=== PATIENT | female | born 1965 | race Caucasian/White ===

== ENCOUNTER → 2017-07-04 | Outpatient (CLI) | payer OTHER ==
[~2017-07-04] MED LIST: ALUMAG30SU PO; CYCL10 PO; METH10 PO; ONDA4ODT MM; VITB100 PO; [UNRECOGNIZED DRUG - OTHER] PO
== END ==
LOC: LAB SHORT 12:53 → PLD 12:53
DX: N95.0 Postmenopausal bleeding (principal)
CPT/HCPCS: 88305

== ENCOUNTER 2017-10-14 06:06 | Day surgery (SDC) | payer OTHER, SELFPAY ==
[~2017-10-14] VITALS: Ht 170.2 cm; Wt 77.6 kg
[~2017-10-14 06:06] MED LIST changes: +ERGO400 PO; +ESTR2 PO; +Glucosamine-Ch1 EAC2 PO; +MEGA RED KRILL PO; +TUMS200 MG PO; +[UNRECOGNIZED DRUG - REMARK]
[2017-10-15 05:26] LABS: BASOPHILS ABSOLUTE AUTO 0.02 K/mm3 (0.00-0.23); BASOPHILS PERCENT AUTO 0 % (0-2); EOSINOPHILS ABSOLUTE AUTO 0.06 K/mm3 (0.00-0.68); EOSINOPHILS PERCENT AUTO 1 % (0-6); Hematocrit 38.2 % (33.0-51.0); Hemoglobin 12.7 g/dL (11.5-16.0); IMMATURE GRAN ABSOLUTE AUTO 0.04 K/mm3 (0.00-0.10); IMMATURE GRAN PERCENT AUTO 0 % (0-1); LYMPHOCYTES ABSOLUTE AUTO 1.96 K/mm3 (0.84-5.20); LYMPHOCYTES PERCENT AUTO 16 % (21-46); MONOCYTES ABSOLUTE AUTO 0.76 K/mm3 (0.16-1.47); MONOCYTES PERCENT AUTO 6 % (4-13); Mean Corpuscular HGB 28.9 pg (26.0-34.0); Mean Corpuscular HGB Conc 33.2 g/dL (31.5-36.5); Mean Corpuscular Volume 87 fL (80-100); Mean Platelet Volume 11.4 fL (9.1-12.4); NEUTROPHILS ABSOLUTE AUTO 9.19 K/mm3 (1.96-9.15); NEUTROPHILS PERCENT AUTO 76 % (41-73); Platelet Count 211 K/mm3 (150-400); RDW Coefficient Variation 13.2 % (11.7-14.2); RDW Standard Deviation 41.5 fL (35.1-46.3); White Blood Cell Count 12.03 K/mm3 (4.00-11.30)
[2017-10-15 05:46] LABS: Anion Gap 9 mmol/L (6-16); Blood Urea Nitrogen 10 mg/dL (8-24); Bun/Creatinine Ratio 16.6 (12.0-20.0); CO2, Blood 26 mmol/L (21-32); Calcium, Blood 8.7 mg/dL (8.5-10.1); Chloride, Blood 107 mmol/L (98-108); Glomerular Filtration Rate >60 (60-); Glucose, Blood 105 mg/dL (70-99); Potassium, Blood 3.7 mmol/L (3.5-5.5); Sodium, Blood 142 mmol/L (136-145)
[2017-10-15] MEDS ORDERED: IBUP800 PO (08:46)
[2017-10-15] MEDS ORDERED: ROXICODONE5 MG PO (08:47)
== END 2017-10-15 15:06 | disposition home or self-care (01) ==
LOC: ORSCMMR 06:06 → SURS 06:06 → ORSCMMR 06:07 → ORD 07:30 → ORSCMMR 10:40 → SURS 10:40 → ORSCMMR 10-15 15:06
PROVIDERS: Obstetrics & Gynecology
PROC: 0UT7FZZ Resection of Bilateral Fallopian Tubes, Via Natural or Artificial Opening With Percutaneous Endoscopic Assistance (ICD-10-PCS; principal; 2017-10-14 07:30)
PROC: 0UT9FZZ Resection of Uterus, Via Natural or Artificial Opening With Percutaneous Endoscopic Assistance (ICD-10-PCS; principal; 2017-10-14 07:30)
PROC: 0UT1FZZ Resection of Left Ovary, Via Natural or Artificial Opening With Percutaneous Endoscopic Assistance (ICD-10-PCS; principal; 2017-10-14 07:30)
DX: N95.0 Postmenopausal bleeding (principal); N81.6 Rectocele; N80.0 Endometriosis of uterus; D25.9 Leiomyoma of uterus, unspecified; Z87.891 Personal history of nicotine dependence; B19.20 Unspecified viral hepatitis C without hepatic coma
CPT/HCPCS: 36415; 80048; 85025; 88307; J0171; J0690; J1100; J1885; J2250; J2405; J2765; J3010; J7120

== ENCOUNTER 2018-04-08 08:22 | Day surgery (SDC) | payer OTHER, SELFPAY ==
[~2018-04-08 08:22] MED LIST changes: +IBUP800 PO; +ROXICODONE5 MG PO
--- NOTE | 2018-04-08 10:19 | NUR ---
PT DENIES C/O OF PAIN AT INCISION SITE. NO BLEEDING OR SWELLING AT SITE. PT PLACED ON R SIDE WITH A ROLLED TOWEL FOR PRESSURE.
--- NOTE | 2018-04-08 11:39 | NUR ---
PT CONTINUES TO BE STABLE THROUGHOUT RECOVERY FROM LIVER US. US IS COMING BY TO DO US AT BEDSIDE.
--- NOTE | 2018-04-08 11:42 | NUR ---
PT TOLERATING PO FLUIDS WITHOUT DIFFICULTY.
--- NOTE | 2018-04-08 12:06 | NUR ---
Discharge instructions reviewed with patient. Patient verbalizes understanding. Copy given to patient to take home. Patient States Post-Procedure ride home has been arranged. Discharged via wheelchair to private car for ride home. PT US CLEARED FOR DISCHARGE HOME. ALL BELONGIGNS RETURNED TO PATIENT. PT NEEDED W/C RIDE OUT TO CAR DUE TO PAST BACK SURGERIES.
[2018-04-15] MEDS ORDERED: ESTR2 PO (11:12)
[2018-04-15] MEDS ORDERED: LORA1 PO (11:13)
== END 2018-04-08 22:35 | disposition home or self-care (01) ==
LOC: US 08:22
PROVIDERS: Radiology Diagnostic Radiology
PROC: 0FB03ZX Excision of Liver, Percutaneous Approach, Diagnostic (ICD-10-PCS; principal; 2018-04-08 10:00)
DX: C78.7 Secondary malignant neoplasm of liver and intrahepatic bile duct (principal); R63.4 Abnormal weight loss; R19.4 Change in bowel habit
CPT/HCPCS: 47000; 76942; 88305; 88341; 88342

== ENCOUNTER 2018-04-16 09:33 | Day surgery (SDC) | payer OTHER ==
[~2018-04-16] VITALS: Ht 170.2 cm; Wt 63.5 kg
[~2018-04-16 09:33] MED LIST changes: +LORA1 PO
--- NOTE | 2018-04-16 10:13 | NUR ---
PT ADMITTED TO [facility]. AGREES WITH PLANNED SURGERY. MEDS, ALLERGIES AND HX REVIEWED. LUNG SOUNDS DECREASED TO BASES.
--- NOTE | 2018-04-16 11:04 | NUR ---
REPORT TO DAVID HICKS RN.
--- NOTE | 2018-04-16 15:25 | NUR ---
50CC CLEAR EMESIS NOTED. MEDICATED WITH 4MG IV ZOFRAN. PT REPORTS IMPROVEMENT IN NAUSEA. MEDICATED WITH 1 TAB PO NORCO ORDERED. REPORTS 3/10 PAIN. VERBALIZED UNDERSTANDING OF DC INSTRUCTIONS/FOLLOW UP/WOUND CARE. DC'D IV INTACT. DISCHARGED VIA WC TO PRIVATE CAR.
== END 2018-04-16 22:36 | disposition home or self-care (01) ==
LOC: ORSCMMR 09:33 → ORD 11:45 → ORSCMMR 22:36
PROVIDERS: Surgery
PROC: 0JH60WZ Insertion of Totally Implantable Vascular Access Device into Chest Subcutaneous Tissue and Fascia, Open Approach (ICD-10-PCS; principal; 2018-04-16 11:45)
DX: C18.7 Malignant neoplasm of sigmoid colon (principal); C78.7 Secondary malignant neoplasm of liver and intrahepatic bile duct; F41.9 Anxiety disorder, unspecified; B19.20 Unspecified viral hepatitis C without hepatic coma; Z87.891 Personal history of nicotine dependence; Z79.899 Other long term (current) drug therapy
CPT/HCPCS: 77001; 93005; 93010; C1788; J0690; J0744; J1642; J2250; J2405; J3010; J7120

== ENCOUNTER 2018-06-02 16:38 | Emergency (ER) | payer OTHER ==
[~2018-06-02] VITALS: Ht 165.1 cm; Wt 59.0 kg
[2018-06-02 17:11] LABS: BASOPHILS ABSOLUTE AUTO 0.02 K/mm3 (0.00-0.23); BASOPHILS PERCENT AUTO 0 % (0-2); EOSINOPHILS ABSOLUTE AUTO 0.03 K/mm3 (0.00-0.68); EOSINOPHILS PERCENT AUTO 0 % (0-6); Hematocrit 39.6 % (33.0-51.0); Hemoglobin 12.7 g/dL (11.5-16.0); IMMATURE GRAN ABSOLUTE AUTO 0.02 K/mm3 (0.00-0.10); IMMATURE GRAN PERCENT AUTO 0 % (0-1); LYMPHOCYTES ABSOLUTE AUTO 0.77 K/mm3 (0.84-5.20); LYMPHOCYTES PERCENT AUTO 10 % (21-46); MONOCYTES ABSOLUTE AUTO 0.12 K/mm3 (0.16-1.47); MONOCYTES PERCENT AUTO 2 % (4-13); Mean Corpuscular HGB Conc 32.1 g/dL (31.5-36.5); Mean Corpuscular Volume 87 fL (80-100); Mean Platelet Volume 11.5 fL (9.1-12.4); NEUTROPHILS ABSOLUTE AUTO 6.55 K/mm3 (1.96-9.15); NEUTROPHILS PERCENT AUTO 87 % (41-73); Platelet Count 167 K/mm3 (150-400); RDW Coefficient Variation 16.8 % (11.7-14.2); RDW Standard Deviation 52.5 fL (35.1-46.3); Red Blood Cell Count 4.53 M/mm3 (3.80-5.20); White Blood Cell Count 7.51 K/mm3 (4.00-11.30)
[2018-06-02 17:38] LABS: Alanine Aminotransfer (ALT/SGP 33 U/L (12-78); Albumin, Blood 3.5 g/dL (3.4-5.0); Albumin/Globulin Ratio 0.8 (0.8-1.8); Alk Phos 175 U/L (50-136); Anion Gap 7 mmol/L (6-16); Aspartate Aminotrans (AST/SGOT 29 U/L (12-37); Bilirubin, Total 0.3 mg/dL (0.1-1.0); Blood Urea Nitrogen 5 mg/dL (8-24); Bun/Creatinine Ratio 15.5 (12.0-20.0); CO2, Blood 28 mmol/L (21-32); Chloride, Blood 105 mmol/L (98-108); Creatinine, Blood 0.32 mg/dL (0.40-1.00); Globulin, Blood 4.2 g/dL (2.2-4.0); Glomerular Filtration Rate >60 (60-); Glucose, Blood 129 mg/dL (70-99); Potassium, Blood 3.7 mmol/L (3.5-5.5); Sodium, Blood 140 mmol/L (136-145); Total Protein, Blood 7.7 g/dL (6.4-8.2); Troponin I <0.015 ng/mL (0.000-0.040)
== END 2018-06-02 18:20 | disposition home or self-care (01) ==
LOC: ER 16:38
PROVIDERS: Emergency Medicine
DX: R42 Dizziness and giddiness (principal); J44.9 Chronic obstructive pulmonary disease, unspecified; Z87.891 Personal history of nicotine dependence
CPT/HCPCS: 71046; 80053; 84484; 85025; 93005; 93010; 96374; 96375; 99284-25; J1200; J1642; J2405; J7030

== ENCOUNTER → 2018-10-27 | Outpatient (CLI) | payer OTHER | END | disposition home or self-care (01) | LOC: LAB 17:15 → LAB SHORT 17:15 | DX: J02.9 Acute pharyngitis, unspecified (principal) | CPT/HCPCS: 87081 ==

== ENCOUNTER 2019-04-10 09:08 | Emergency (ER) | payer MEDICARE, OTHER ==
[~2019-04-10] VITALS: Ht 170.2 cm; Wt 67.1 kg
[2019-04-10] MEDS ORDERED: Methadone10 MG/5 ML (09:31)
[2019-04-10] MEDS ORDERED: Ondansetron Odt8 MG MM (09:31)
[2019-04-10 10:57] LABS: BASOPHILS ABSOLUTE AUTO 0.02 K/mm3 (0.00-0.23); BASOPHILS PERCENT AUTO 0 % (0-2); EOSINOPHILS ABSOLUTE AUTO 0.08 K/mm3 (0.00-0.68); EOSINOPHILS PERCENT AUTO 1 % (0-6); Hematocrit 34.6 % (33.0-51.0); Hemoglobin 10.8 g/dL (11.5-16.0); IMMATURE GRAN ABSOLUTE AUTO 0.04 K/mm3 (0.00-0.10); IMMATURE GRAN PERCENT AUTO 1 % (0-1); LYMPHOCYTES ABSOLUTE AUTO 1.03 K/mm3 (0.84-5.20); LYMPHOCYTES PERCENT AUTO 13 % (21-46); MONOCYTES PERCENT AUTO 7 % (4-13); Mean Corpuscular HGB 27.3 pg (26.0-34.0); Mean Corpuscular HGB Conc 31.2 g/dL (31.5-36.5); Mean Corpuscular Volume 87 fL (80-100); NEUTROPHILS ABSOLUTE AUTO 6.36 K/mm3 (1.96-9.15); NEUTROPHILS PERCENT AUTO 78 % (41-73); Platelet Count 222 K/mm3 (150-400); RDW Coefficient Variation 15.1 % (11.7-14.2); RDW Standard Deviation 48.7 fL (35.1-46.3); Red Blood Cell Count 3.96 M/mm3 (3.80-5.20); White Blood Cell Count 8.13 K/mm3 (4.00-11.30)
[2019-04-10 11:09] LABS: Alanine Aminotransfer (ALT/SGP 35 U/L (12-78); Albumin, Blood 2.8 g/dL (3.4-5.0); Albumin/Globulin Ratio 0.7 (0.8-1.8); Alk Phos 260 U/L (50-136); Anion Gap 5 mmol/L (6-16); Aspartate Aminotrans (AST/SGOT 68 U/L (12-37); Bilirubin, Total 0.4 mg/dL (0.1-1.0); Blood Urea Nitrogen 13 mg/dL (8-24); Bun/Creatinine Ratio 21.1 (12.0-20.0); CO2, Blood 30 mmol/L (21-32); Chloride, Blood 103 mmol/L (98-108); Creatinine, Blood 0.62 mg/dL (0.40-1.00); Globulin, Blood 3.9 g/dL (2.2-4.0); Glomerular Filtration Rate >60 (60-); Glucose, Blood 91 mg/dL (70-99); Potassium, Blood 3.9 mmol/L (3.5-5.5); Sodium, Blood 138 mmol/L (136-145); Total Protein, Blood 6.7 g/dL (6.4-8.2)
== END 2019-04-10 13:15 | disposition home or self-care (01) ==
LOC: ER 09:08
PROVIDERS: Emergency Medicine
DX: C18.9 Malignant neoplasm of colon, unspecified (principal); C78.7 Secondary malignant neoplasm of liver and intrahepatic bile duct; Z88.0 Allergy status to penicillin; Z88.1 Allergy status to other antibiotic agents; Z88.5 Allergy status to narcotic agent; Z91.048 Other nonmedicinal substance allergy status; Z79.899 Other long term (current) drug therapy; F41.9 Anxiety disorder, unspecified; Z87.891 Personal history of nicotine dependence
CPT/HCPCS: 71046; 74177; 80053; 83690; 85025; 86850; 86900; 86901; 93005; 93010; 96361; 96374-59; 96375; 96376; 99284-25; J1170; J1642; J2405; J7030; Q9967

== ENCOUNTER 2019-05-25 06:19 | Inpatient (IN) | payer MEDICARE, OTHER ==
[~2019-05-25] VITALS: Ht 170.2 cm; Wt 65.5 kg
[~2019-05-25 06:19] MED LIST changes: +Methadone10 MG/5 ML PO; +Ondansetron Odt8 MG MM
[2019-05-25 07:04] LABS: Source, Urine Clean Catch
[2019-05-25 07:12] LABS: Blood, Urine 1+ (Neg); Glucose Qualitative, Urine Neg (Neg); Ketones, Urine 1+ (Neg); Leukocyte Esterase, Urine 2+ (Neg); Nitrite, Urine Neg (Neg); Protein, Urine 2+ (Neg); Urobilinogen, Urine 1+ (Normal)
[2019-05-25 07:18] LABS: Appearance, Urine Cloudy (Clear); Bilirubin, Urine 1+ (Neg); Color, Urine Amber (P-Yellow)
[2019-05-25 07:21] LABS: Red Blood Cells, Urine 0-2 /hpf (0-2)
[2019-05-25 07:22] LABS: Bacteria Many /hpf
[2019-05-25 07:23] LABS: Squamous Epithelial Cells Few /hpf (Few)
[2019-05-25 07:29] LABS: Calcium Oxalate Crystals Mod /hpf
[2019-05-25 07:31] LABS: Mucus Mod (0-Heavy)
[2019-05-25 07:50] LABS: BASOPHILS ABSOLUTE AUTO 0.05 K/mm3 (0.00-0.23); BASOPHILS PERCENT AUTO 0 % (0-2); EOSINOPHILS ABSOLUTE AUTO 0.07 K/mm3 (0.00-0.68); EOSINOPHILS PERCENT AUTO 1 % (0-6); Hematocrit 45.5 % (33.0-51.0); IMMATURE GRAN ABSOLUTE AUTO 0.06 K/mm3 (0.00-0.10); IMMATURE GRAN PERCENT AUTO 0 % (0-1); LYMPHOCYTES ABSOLUTE AUTO 0.94 K/mm3 (0.84-5.20); LYMPHOCYTES PERCENT AUTO 7 % (21-46); MONOCYTES ABSOLUTE AUTO 0.81 K/mm3 (0.16-1.47); MONOCYTES PERCENT AUTO 6 % (4-13); Mean Corpuscular HGB Conc 30.8 g/dL (31.5-36.5); Mean Corpuscular Volume 88 fL (80-100); Mean Platelet Volume 10.1 fL (9.1-12.4); NEUTROPHILS ABSOLUTE AUTO 12.14 K/mm3 (1.96-9.15); NEUTROPHILS PERCENT AUTO 86 % (41-73); Platelet Count 156 K/mm3 (150-400); RDW Coefficient Variation 20.6 % (11.7-14.2); RDW Standard Deviation 63.1 fL (35.1-46.3); Red Blood Cell Count 5.19 M/mm3 (3.80-5.20); White Blood Cell Count 14.07 K/mm3 (4.00-11.30)
[2019-05-25 08:10] LABS: Alanine Aminotransfer (ALT/SGP 38 U/L (12-78); Albumin, Blood 3.4 g/dL (3.4-5.0); Albumin/Globulin Ratio 0.8 (0.8-1.8); Alk Phos 222 U/L (50-136); Anion Gap 9 mmol/L (6-16); Aspartate Aminotrans (AST/SGOT 43 U/L (12-37); Bilirubin, Total 0.3 mg/dL (0.1-1.0); Blood Urea Nitrogen 16 mg/dL (8-24); Bun/Creatinine Ratio 33.7 (12.0-20.0); CO2, Blood 27 mmol/L (21-32); Calcium, Blood 9.4 mg/dL (8.5-10.1); Chloride, Blood 105 mmol/L (98-108); Creatinine, Blood 0.48 mg/dL (0.40-1.00); Globulin, Blood 4.5 g/dL (2.2-4.0); Glomerular Filtration Rate >60 (60-); Glucose, Blood 112 mg/dL (70-99); Potassium, Blood 4.1 mmol/L (3.5-5.5); Sodium, Blood 141 mmol/L (136-145); Total Protein, Blood 7.9 g/dL (6.4-8.2)
[2019-05-25] MEDS ORDERED: Flagyl500 MG PO (08:25)
[2019-05-25] MEDS ORDERED: Cipro500 MG PO (08:25)
[2019-05-25] MEDS ORDERED: PRED5 PO (12:38)
[2019-05-25] MEDS ORDERED: CYCL10 PO (12:38)
--- NOTE | 2019-05-25 15:43 | NUR ---
PT ADMITTED PT ADMITTED TO 356. PT IN STABLE CONDTION WITH VSS. PT ORIENTED TO ROOM. CALL LIGHT IN REACH. FAMILY AT BEDSIDE. PT MEDICATED WITH METHDONE ORDERED. REFUSED HEPARIN INJECTION. PT BECAME NAUSEATED FROM METHADONE TAB. DR. IBARRA NOTIFIED. ORDER CHANGED TO LIQUID. PT HOME DOSE USED. THIS RN WALKED PT METHADONE TO PHARMACY. RECIEPT RECIEVED AND TAPED TO FRONT OF CHART. WILL CONTINUE TO MONITOR.
--- NOTE | 2019-05-25 16:19 | NUR ---
PT METHADONE RETURNED TO PT. PHARMACY UNABLE TO ADMINISTER HOME METHADONE. MEDADONE RETURNED TO PT. TO TAKE HOME.
--- NOTE | 2019-05-25 17:14 | NUR ---
SHIFT SUMMARY PT MEDICATED WITH DILADID ONCE THIS SHIFT. NS RUNNING 100ML/HR. IF PO MEDS ARE GIVEN, NAUSEA MEDS ARE NEEDED WITH ADMINISTRATION. NO OTHER CHANGES IN ASSESSMENT AT THIS TIME. VSS. WILL CONTINUE TO MONITOR UNTIL TURNOVER IS COMPLETE.
--- NOTE | 2019-05-25 19:38 | NUR ---
[facility]
--- NOTE | 2019-05-25 22:50 | NUR ---
53 year old Female with stage 4 liver and colon cancer has hx of multiple spine surgeries and on liquid oral methadone 10 mg QID who was willing to supply own liqiud methadone but we are unable to administer PT's own liquid methadone per controlled rx policy. She has chronic nausea and continues unable to tolerate much oral intake clear liquids. She has been medicated with IV zofran Q 6 hrs with narcotic administration with poor control. ARCHITECTURAL INTERN Latonia Castillo called and discussed chronic narcotic use last yesterday who says she needs zofran or other antiemetic avaiable more frequently. She has reported 5 stools today and refused colace and sennakot and takes miralax daily baseline. Miralax rx oral phenergan rx and zofran IV available q 4 hrs now. PT has option for oral methadone 10 mg for pain and IV dilaudid 1 mg available q 4 hrs. She has taken 1 mg IV dilaudid with helpful effect and has declined oral methadone due to reported N & V baseline unless liquid. Continues on IV fluids for dehydration poor oral intake. PT has mediport not accessed due to active chemo due tomorrow outpt. Benzo ativan 0.5 available q 4 hrs prn took at HS with helpful effect. Pleasant and talkative up indep in room. Support offered for terminal disease. Has supportive Spouse 2 Adult Children and 2 Grandchildren.
[2019-05-26 04:45] LABS: BASOPHILS ABSOLUTE AUTO 0.01 K/mm3 (0.00-0.23); BASOPHILS PERCENT AUTO 0 % (0-2); EOSINOPHILS ABSOLUTE AUTO 0.15 K/mm3 (0.00-0.68); EOSINOPHILS PERCENT AUTO 3 % (0-6); Hematocrit 36.4 % (33.0-51.0); Hemoglobin 11.1 g/dL (11.5-16.0); IMMATURE GRAN ABSOLUTE AUTO 0.01 K/mm3 (0.00-0.10); IMMATURE GRAN PERCENT AUTO 0 % (0-1); LYMPHOCYTES ABSOLUTE AUTO 1.35 K/mm3 (0.84-5.20); LYMPHOCYTES PERCENT AUTO 23 % (21-46); MONOCYTES ABSOLUTE AUTO 0.35 K/mm3 (0.16-1.47); MONOCYTES PERCENT AUTO 6 % (4-13); Mean Corpuscular HGB Conc 30.5 g/dL (31.5-36.5); Mean Corpuscular Volume 89 fL (80-100); Mean Platelet Volume 10.4 fL (9.1-12.4); NEUTROPHILS ABSOLUTE AUTO 4.13 K/mm3 (1.96-9.15); NEUTROPHILS PERCENT AUTO 69 % (41-73); Platelet Count 121 K/mm3 (150-400); RDW Coefficient Variation 20.8 % (11.7-14.2); RDW Standard Deviation 65.3 fL (35.1-46.3); Red Blood Cell Count 4.11 M/mm3 (3.80-5.20)
[2019-05-26 05:08] LABS: Alanine Aminotransfer (ALT/SGP 27 U/L (12-78); Albumin, Blood 2.8 g/dL (3.4-5.0); Albumin/Globulin Ratio 0.8 (0.8-1.8); Alk Phos 167 U/L (50-136); Anion Gap 3 mmol/L (6-16); Aspartate Aminotrans (AST/SGOT 28 U/L (12-37); Bilirubin, Total 0.3 mg/dL (0.1-1.0); Blood Urea Nitrogen 8 mg/dL (8-24); Bun/Creatinine Ratio 12.9 (12.0-20.0); CO2, Blood 29 mmol/L (21-32); Calcium, Blood 8.5 mg/dL (8.5-10.1); Chloride, Blood 110 mmol/L (98-108); Creatinine, Blood 0.62 mg/dL (0.40-1.00); Globulin, Blood 3.6 g/dL (2.2-4.0); Glomerular Filtration Rate >60 (60-); Glucose, Blood 87 mg/dL (70-99); Potassium, Blood 3.9 mmol/L (3.5-5.5); Sodium, Blood 142 mmol/L (136-145); Total Protein, Blood 6.4 g/dL (6.4-8.2)
--- NOTE | 2019-05-26 07:39 | NUR ---
PT with methadone dependancy also has abd pain stage 4 colon cvancer with mets to liver, stage 2 lung CA. Exsmoker, etoh cessation 20 years ago. On pallative chemo to tx mets, due for Q 2 week interval tx. Implanted mediport not accessed. Continues unable to tolerate clear liquid diet. medicated x 2 with zofran phenergan 12.5 mg with helpful effect. Methadone 10 mg x 1 dilaudid 1 mg iv q 4 hrs x 2 prn with good pain control. PT states 5 formed bm yesterday 3 x my shift declined bowel care. Miralax order obtained. Summer, connie in room. hx of 18 surgeries to neck and spine.
--- NOTE | 2019-05-26 18:31 | NUR ---
SHIFT SUMMARY PATIENT MEDICATED SEVERAL TIMES FOR PAIN AND NAUSEA THIS SHIFT. PATIENT DENIES SHORTNESS OF BREATH. PATIENT UP SBA TO BATHROOM. PATIENT HAD EPISODE OF HEART RATE ELEVATED INTO THE 160'S. PATIENT WAS DIZZY AND SYMPTOMATIC REPORTING SHE FELT "TERRIBLE" AND LIKE HER HEART WAS POUNDING OUT OF HER CHEST. CALL TO DR. BARKER, ORDERS FOR TELEMETRY AND EKG GIVEN. EKG SHOWED NSR. CALL LIGHT IN REACH.
--- NOTE | 2019-05-27 08:39 | NUR ---
PATIENT DID NOT EAT BREAKFAST THIS SHIFT DUE TO NOT FEELING WELL. RN NOTIFIED.
--- NOTE | 2019-05-27 13:32 | NUR ---
Initial PAL CARE visit: Palliative care referral received for symptom management and advanced care planning. Review of EMR and case conference with pt's bedside RN and admission discharge rn prior to my visit. Pt has metastatic colon cancer and reports "stage IV colon, liver and lung cancer" upon meeting. She states she has done palliative chemo tx since dx approx 13 months ago. She reports sobriety of 20 years after many years of heavy drinking and smoking. 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 Pt was admitted with n/v, abd and chronic back pain from prev back injury/surgery and reported hardware in low back. Medications for s/s reviewed with RN and both RN and pt report pt's s/s are well managed with current regime as long as it is followed without gaps in administration. Pt sitting by window, up in chair upon arrival. Introduced myself. Pt slightly guarded initially but warmed quickly to conversation and supportive listening. Discussed her s/s and measures for relief of nausea, pain and anxiety. Time spent listening and allowing pt to express her feelings, grief, worries about and son and what her future holds. She expressed that she is tired of frequent medical care and complications from cancer and her treatment but also describes an enjoyed quality of life when she is not undergoing treatment or medical intervention. She spoke of two grandchildren, son and especially her and concern for him. We talked about nonpharmacological measures for relief of nausea, pain, anxiety. Pt talked about wishing she could see her dog, and that being able to see her yorkie & relieve the dog's stress would aleviate her own anxiety more than anything. Arrangements made and pt told to have her bring her yorkie for visits. Pt very pleased about this. Therapeutic visit continued. Report to RN and car rental clerk on my visit. Requested International Project Engineer visit during pt's stay. She has strong real in GOD and feels he has more for her to do yet. She feels God saved her from both her alcohol addiction and smoking addiction. Plan to follow for s/s management and therapeutic visits.
--- NOTE | 2019-05-27 18:32 | NUR ---
SHIFT SUMMARY PATIENT MEDICATED X2 FOR PAIN AND X2 FOR NAUSEA. PATIENT REPORTS FEELING BETTER TODAY. TOLERATING FULL LIQUID DIET WELL. UP SBA IN ROOM. CALL LIGHT IN REACH.
--- NOTE | 2019-05-27 19:24 | NUR ---
Initial spiritual care note: Arleen was welcoming of companionship and prayer. She reports a strong real that sustains and guides her. She beleives that God has spared her numerous times from , and feels she has a purpose she has yet to fulfill. She is well-loved and supported by her spouse. She admits to feeling fearful at times, but she quickly dismisses this. She will benefit from continued spiritual support and disability counselor to explore purpose/fear. Visit interrupted when I was urgently called to another pt's room. I will continue to see Arleen as schedule permits.
--- NOTE | 2019-05-28 00:58 | NUR ---
PHYSICIAN COMMUNICATION CONTACTED THE IT ENGINEER PHYSICIAN, DR SCHAEFFER, AT 0013 TO INFORM HER THAT THE PATIENT HAD TWO EPISODES WHERE SHE TURNED FLUSHED AT SWEATY WITH HER HEART RATE TEMPORARILLY SUSTAINING BETWEEN 115-120 BPM FOR ABOUT 30 SECOND TO A MINUTE. I ASLO INFORMED HER THAT THE PATIENT WAS RECEIVING CIPRO AND FLAGYL. DR SCHAEFFER SAID TO TAKE THE PATIENT'S BLOOD PRESSURE AND TEMPERATURE AND MONITOR THE PATIENT FOR ANY SIGNS OF A RASH.
[2019-05-28 05:06] LABS: BASOPHILS ABSOLUTE AUTO 0.02 K/mm3 (0.00-0.23); BASOPHILS PERCENT AUTO 0 % (0-2); EOSINOPHILS ABSOLUTE AUTO 0.08 K/mm3 (0.00-0.68); EOSINOPHILS PERCENT AUTO 2 % (0-6); Hematocrit 37.4 % (33.0-51.0); Hemoglobin 11.5 g/dL (11.5-16.0); IMMATURE GRAN ABSOLUTE AUTO 0.03 K/mm3 (0.00-0.10); IMMATURE GRAN PERCENT AUTO 1 % (0-1); LYMPHOCYTES ABSOLUTE AUTO 1.08 K/mm3 (0.84-5.20); LYMPHOCYTES PERCENT AUTO 21 % (21-46); MONOCYTES ABSOLUTE AUTO 0.45 K/mm3 (0.16-1.47); MONOCYTES PERCENT AUTO 9 % (4-13); Mean Corpuscular HGB Conc 30.7 g/dL (31.5-36.5); Mean Corpuscular Volume 88 fL (80-100); Mean Platelet Volume 10.2 fL (9.1-12.4); NEUTROPHILS ABSOLUTE AUTO 3.41 K/mm3 (1.96-9.15); NEUTROPHILS PERCENT AUTO 67 % (41-73); Platelet Count 123 K/mm3 (150-400); RDW Coefficient Variation 20.5 % (11.7-14.2); Red Blood Cell Count 4.26 M/mm3 (3.80-5.20); White Blood Cell Count 5.07 K/mm3 (4.00-11.30)
[2019-05-28 05:48] LABS: Anion Gap 4 mmol/L (6-16); Blood Urea Nitrogen 6 mg/dL (8-24); Bun/Creatinine Ratio 9.6 (12.0-20.0); CO2, Blood 31 mmol/L (21-32); Calcium, Blood 9.1 mg/dL (8.5-10.1); Chloride, Blood 106 mmol/L (98-108); Creatinine, Blood 0.63 mg/dL (0.40-1.00); Glomerular Filtration Rate >60 (60-); Glucose, Blood 87 mg/dL (70-99); Potassium, Blood 3.4 mmol/L (3.5-5.5); Sodium, Blood 141 mmol/L (136-145)
--- NOTE | 2019-05-28 07:28 | NUR ---
SHIFT SUMMARY PATIENT ALERT AND ORIENTED. HAD TWO EPISODES OVERNIGHT WHERE HER HEART WAS TACHYCARDIC FOR ABOUT 30 SECOND AND SHE FELT HOT, TURNED RED, WAS SWEATY, AND DIZZY. PHYSICIAN NOTIFIED. PATIENT MEDICATED PER EMAR FOR PAIN AND NAUSEA. IV PATENT AND INFUSING WITH NORMAL SALINE AT 100 ML/HR. BED IN LOWEST POSITION WITH WHEELS LOCKED. CALL LIGHT AND BELONGINGS WITHIN REACH. REPORT GIVEN TO ONCOMING RN.
[2019-05-28] MEDS ORDERED: ACET325 PO (09:59)
[2019-05-28] MEDS ORDERED: ESTRADIOL0.5 MG PO (10:01)
[2019-05-28] MEDS ORDERED: DOCU100 PO (10:01)
[2019-05-28] MEDS ORDERED: LORA.5 PO (10:02)
[2019-05-28] MEDS ORDERED: CIPR500 PO (10:03)
[2019-05-28] MEDS ORDERED: ONDA4ODT MM (10:03)
[2019-05-28] MEDS ORDERED: PANT40 PO (10:04)
[2019-05-28] MEDS ORDERED: METR500 PO (10:04)
--- NOTE | 2019-05-28 15:54 | NUR ---
PT DISCHARGED AT 1500 [facility] WHEELED OUT PT VIA WHEEL CHAIR. PT HAD ALL PAPERS REVIEWED AND EDCATIONAL MATERIAL SENT WITH PT. NO DISTRESS NOTED TO TRANSPORT.
== END 2019-05-28 15:00 | disposition home or self-care (01) | DRG 392 ==
LOC: ER 06:19 → MEDS 13:20 → ENPENDDIS 05-28 08:30 → MEDS 05-28 15:00
PROVIDERS: Emergency Medicine; Internal Medicine; ADMIT Internal Medicine
DX: A09 Infectious gastroenteritis and colitis, unspecified (principal); C19 Malignant neoplasm of rectosigmoid junction; C78.7 Secondary malignant neoplasm of liver and intrahepatic bile duct; E44.0 Moderate protein-calorie malnutrition; M54.9 Dorsalgia, unspecified; G89.29 Other chronic pain; J44.9 Chronic obstructive pulmonary disease, unspecified; Z79.891 Long term (current) use of opiate analgesic; Z92.21 Personal history of antineoplastic chemotherapy; Z66 Do not resuscitate; K59.00 Constipation, unspecified; Z87.891 Personal history of nicotine dependence; R00.0 Tachycardia, unspecified; Z68.22 Body mass index [BMI] 22.0-22.9, adult
CPT/HCPCS: 36415; 74177; 80048; 80053; 81001; 83690; 85025; 87086; 93005; 93010; 96361; 96365; 96367; 96375; 96376; 99285-25; C9113; J0744; J1170; J2405; J7030; J7512; Q9967

== ENCOUNTER 2019-08-06 06:01 | Inpatient (IN) | payer MEDICARE, OTHER ==
[~2019-08-06] VITALS: Ht 170.2 cm; Wt 58.1 kg
[~2019-08-06 06:01] MED LIST changes: +ACET325 PO; +CIPR500 PO; +Cipro500 MG PO; +DOCU100 PO; +ESTRADIOL0.5 MG PO; +Flagyl500 MG PO; +LORA.5 PO; +METR500 PO; +PANT40 PO; +PRED5 PO
--- NOTE | 2019-08-06 08:20 | NUR ---
PATIENT ADMITTED BY [facility] STAFF Ambulatory in SURGICAL FLOOR.
--- NOTE | 2019-08-06 12:19 | NUR ---
PT ARRIVED TO THE ROOM AT APPROXIMATELY 1155. SHE IS ALERT AND ORIENTED. PT RATES HER PAIN AT 5/10 BUT REPORTS 3/10 WOULD BE TOLERABLE. PT WAS GIVEN PAIN MEDICATION. PT IS SOMEWHAT DROWSY, CONTINUOUS OX WAS ORDERED FOR HIGH RISK PAIN MANAGEMENT. PT'S BP IS ELEVATED AT THIS TIME, WILL CONTINUE TO MONITOR, OTHER VS STABLE. ABD DRESSING C/D/I. CALL LIGHT WITHIN REACH.
[2019-08-06] MEDS ORDERED: Prednisone10 MG PO (12:44)
[2019-08-06] MEDS ORDERED: PANT40 PO (12:46)
[2019-08-06] MEDS ORDERED: Norco 5-325 Ta1 EACH PO (12:48)
[2019-08-06] MEDS ORDERED: ONDA4ODT PO (12:50)
--- NOTE | 2019-08-06 12:51 | NUR ---
MEDICATION LIST VERIFIED WITH PT'S PHARMACY. SOME INSTRUCTIONS ON THE LIST WERE DIFFICULT TO READ, THOSE INSTRUCTIONS WERE CLARIFIED WITH [facility] OVER THE PHONE.
--- NOTE | 2019-08-07 05:01 | NUR ---
POD 1 S/P LAP COLECTOMY+COLOSTOMY. PT VSS T/O NIGHT. DRESSINGS CDI. OSTOMY PUTTING OUT SS DRNG. PAIN MGD ALT IV AND PO PAIN MEDS. PT ABHI CLEAR LIQ PO, DID HAVE 1 EPISODE OF NAUSEA, NO EMESIS, REP RELIEF AFTER ZOFRAN. PT UP OOB W/SBA, ABHI WELL. MCCOY PATANT DRNG LIGHT YELLOW URINE. IVF CONT PER ORDERS. PT USING CALL LIGHT FOR ASSISTANCE, WILL CONT TO MONITOR UNTIL REP GIVEN TO ONCOMING RN.
--- NOTE | 2019-08-07 07:28 | NUR ---
sitting up in chair reports severe pain ruq abd pt has bt's upper abd only denies nausea at this time no flatus in ostomy pt stated she is belching occ po lortab given with popsirenard and aj
--- NOTE | 2019-08-07 08:10 | NUR ---
amb in hallway with fww pt still having pain ruq abd pt stated she uses kpad off and on
--- NOTE | 2019-08-07 09:17 | NUR ---
08/07/19 0917 Charo Pablo VERIFICATIONS: EDIT CHART.
--- NOTE | 2019-08-07 09:30 | NUR ---
pt in bed laying on her l side that it helped dr zee by to see pt
--- NOTE | 2019-08-07 11:59 | NUR ---
DR JURADO BY TO SEE PT TO START A [employer] ROLLER DILAUDID ALSO REQ I NOTIFY HOSP TO SEE IF SHE CAN GO BACK ON HER METHADONE DR THORNTON CALLED MESSAGE LEFT ON ANS
--- NOTE | 2019-08-07 12:29 | NUR ---
DR THORNTON BY TO SEE PT
--- NOTE | 2019-08-07 13:05 | NUR ---
rough patcher started to hold on methadone at this time pt on cont biox pt stated she felt some gurgling in her abd and feels a little better
--- NOTE | 2019-08-07 13:30 | NUR ---
dr zee called update given cbc ordered and will repeat in am
[2019-08-07 13:45] LABS: BASOPHILS ABSOLUTE AUTO 0.02 K/mm3 (0.00-0.23); BASOPHILS PERCENT AUTO 0 % (0-2); EOSINOPHILS ABSOLUTE AUTO 0.31 K/mm3 (0.00-0.68); EOSINOPHILS PERCENT AUTO 5 % (0-6); Hemoglobin 12.8 g/dL (11.5-16.0); IMMATURE GRAN ABSOLUTE AUTO 0.02 K/mm3 (0.00-0.10); IMMATURE GRAN PERCENT AUTO 0 % (0-1); LYMPHOCYTES ABSOLUTE AUTO 0.82 K/mm3 (0.84-5.20); LYMPHOCYTES PERCENT AUTO 14 % (21-46); MONOCYTES ABSOLUTE AUTO 0.67 K/mm3 (0.16-1.47); MONOCYTES PERCENT AUTO 12 % (4-13); Mean Corpuscular HGB 28.6 pg (26.0-34.0); Mean Corpuscular Volume 90 fL (80-100); Mean Platelet Volume 10.2 fL (9.1-12.4); NEUTROPHILS ABSOLUTE AUTO 4.01 K/mm3 (1.96-9.15); NEUTROPHILS PERCENT AUTO 69 % (41-73); Platelet Count 195 K/mm3 (150-400); RDW Coefficient Variation 17.7 % (11.7-14.2); RDW Standard Deviation 57.7 fL (35.1-46.3); Red Blood Cell Count 4.47 M/mm3 (3.80-5.20); White Blood Cell Count 5.85 K/mm3 (4.00-11.30)
--- NOTE | 2019-08-07 15:25 | NUR ---
pt stated pain is much better even able to lay on her r side also reported she felt like some gas came thru her ostomy no stool noted discussed with pt burping the bag when she gets more gas in it will demonstrate and then have pt do it req a jello to eat
--- NOTE | 2019-08-07 17:49 | NUR ---
pt felt like she had to have a bm rectal felt pressure assisted to bathroom instructed pt not to push pt also stated that she take a low dose steriod daily and has not had for past week due to no food with the med
--- NOTE | 2019-08-08 05:00 | NUR ---
SHIFT SUMMARY POD#2 LOOP SIGMOID COLECTOMY WITH OSTOMY PLACEMENT. AAOX4/ANXIOUS. DISCOMFORT CONTROLLED WITH DILAUDID CHARGE ENTRY + X1 IV DILAUDID PUSH THIS SHIFT. NO NAUSEA/EMESIS. ABD INCISION C/D/I. OSTOMY SECURE WITH SCANT AMOUNT SS DRAINAGE NOTED IN BAG. MCCOY SECURE/DRAINING MODERATE AMOUNT TAI URINE. IVF PER ORDERS. PT UP TO CHAIR INDEPENDENTLY FOR COMFORT, BACK TO BED. PT REPORTING DISCOMFORT CENTERED AROUND HER ABD RUQ PAIN POST OP WITH MILD MIDDLE ABD PAIN CLOSE TO INCISION. NO ACUTE CHANGES OVER NIGHT. PT RESTED VERY INTERMITTENTLY. PT CURRENTLY AWAKE WATCHING TV, NADN, WITH CALL LIGHT IN REACH.
[2019-08-08 08:57] LABS: BASOPHILS ABSOLUTE AUTO 0.02 K/mm3 (0.00-0.23); BASOPHILS PERCENT AUTO 0 % (0-2); EOSINOPHILS ABSOLUTE AUTO 0.37 K/mm3 (0.00-0.68); EOSINOPHILS PERCENT AUTO 8 % (0-6); Hematocrit 38.7 % (33.0-51.0); Hemoglobin 12.4 g/dL (11.5-16.0); IMMATURE GRAN ABSOLUTE AUTO 0.01 K/mm3 (0.00-0.10); IMMATURE GRAN PERCENT AUTO 0 % (0-1); LYMPHOCYTES PERCENT AUTO 22 % (21-46); MONOCYTES ABSOLUTE AUTO 0.47 K/mm3 (0.16-1.47); MONOCYTES PERCENT AUTO 10 % (4-13); Mean Corpuscular HGB 28.9 pg (26.0-34.0); Mean Corpuscular Volume 90 fL (80-100); Mean Platelet Volume 10.8 fL (9.1-12.4); NEUTROPHILS ABSOLUTE AUTO 2.72 K/mm3 (1.96-9.15); NEUTROPHILS PERCENT AUTO 59 % (41-73); Platelet Count 193 K/mm3 (150-400); RDW Coefficient Variation 17.7 % (11.7-14.2); RDW Standard Deviation 59.1 fL (35.1-46.3); Red Blood Cell Count 4.29 M/mm3 (3.80-5.20); White Blood Cell Count 4.59 K/mm3 (4.00-11.30)
--- NOTE | 2019-08-08 16:04 | NUR ---
SHIFT SUMMARY PT REPORTS FEELING BETTER THIS SHIFT. OSTOMY IS NOW PRODUCING GAS AND PT REPORTS PAIN RELIEF AND LESS ABD CRAMPING. PT STILL USING SPEECH SCIENTIST DILAUDID FOR PAIN MANAGEMENT. PT IS NOW INDEPENDENTLY BURPING OSTOMY. SCANT SEROSANGUINOUS DRAINAGE IN OSTOMY. PT VERY SLOWLY ABHI CLEAR LIQ DIET. VOIDING SPONTANEOUSLY SINCE MCCOY REMOVAL. IVF INFUSING PER ORDERS. AMBULATING HALLWAY WITH 1 SBA. USES CALL LIGHT APPROPRIATELY.
--- NOTE | 2019-08-09 04:24 | NUR ---
SHIFT SUMMARY POD#3. AAOX4. DISCOMFORT CONTROLLED WITH DILAUDID SECURITY SALES MANAGER USE, NO NAUSEA/EMESIS THIS SHIFT. ABD INCISIONS X3 WITH STERI STRIPS C/D/I. OSTOMY SECURE/WITH SCANT AMOUNT SS DRAINAGE, NO INCREASE THIS SHIFT. INCREASED BOWEL TONES NOTED. PT BURPED OSTOMY X2 THIS SHIFT, UP WALKING IN HALLS INDEPENDENTLY. IVF PER ORDERS. GOOD PO INTAKE + OUTPUT. PT UNABLE TO REST WELL IN HOSPITAL BED THIS SHIFT R/T CHRONIC HIP/SHOULDER DISCOMFORT. PT CURRENTLY RESTING AT THIS TIME, NADN, WITH CALL LIGHT IN REACH.
--- NOTE | 2019-08-09 18:35 | NUR ---
SHIFT SUMMARY PT A&OX4, VSS, POD3 SIG COL, W/COLOSTOMY, NEW APPLIANCE TODAY, PASSING FLATUS. PAIN MANAGED WITH METHADONE AND 7.5 MG LORTAB. ABHI PO REG DIET. VOIDING WELL. AMBULATES INDEPENDENT IN ROOM, TO BRP AND HALLWAY. SHOWERED TODAY. WILL REPORT TO ONCOMING NOC RN.
--- NOTE | 2019-08-09 21:24 | NUR ---
WASTED 15CC DILAUDID WITH Bg ROJAS @[id number].
--- NOTE | 2019-08-10 05:07 | NUR ---
SHIFT SUMMARY: OLIVA IS A&OX4. SHE REPORTS ADEQUATE PAIN CONTROL WITH THE LORTAB AND METHADONE. SHE DOES STATE THAT HER PAIN INCREASES WHEN STOOL IS ATTEMPTING TO MOVE THROUGH THE OSTOMY. OSTOMY BEEFY RED WITH SMALL AMOUNT OF STOOL AND SS FLUID, PASSING FLATUS. VSS, ORA, NO ACUTE CHANGES THIS SHIFT. SHE IS TOLERATING PO INTAKE WELL, BUT FEELS THAT SHE "OVERDID IT" AT DINNER. SHE IS ABLE TO MAKE HER NEEDS KNOWN, INDEPENDENT IN THE ROOM. SHE IS BEGINNING TO TAKE CHARGE OF HER OSTOMY. SHE IS LYING IN BED WITH HER CALL LIGHT IN REACH. WILL REPORT TO DAY SHIFT RN.
--- NOTE | 2019-08-10 10:17 | NUR ---
DR JURADO IN TO SEE PT.
--- NOTE | 2019-08-10 14:01 | NUR ---
PT REPORTED PASSED FLATUS THROUGH STOMA. PT BURPED DEVICE. SCANT AMONT SS DRAINAGE NOTED.
--- NOTE | 2019-08-10 17:53 | NUR ---
SUMMARY NO ACUTE CHANGES T/O SHIFT. OSTOMY PRODUCING FLATUS AND SCANT AMOUNT SS DRAINAGE BUT NO STOOL. PT REPORTED "BURNING PAIN" W/FLATUS T/O DAY UNTIL THIS AFTERNOON. MEDICATED T/O SHIFT FOR PAIN. PT REFUSED DINNER TRAY, STATING DOES NOT EAT DELI MEAT AND DECLINED OFFER TO ORDER SOMETHING ELSE. KEPT MILK OFF TRAY. PT HAS PERIODS OF ANXIETY AND TEARFULNESS. STATES NERVOUS ABOUT GOING HOME W/OSTOMY AND REALITY OF PROGNOSIS IS UPSETTING. ENCOURAGED PT TO WATCH OSTOMY VIDEOS AND TALKED ABOUT EMPTYING BAG ONCE STOOL BEGINS TO PASS. PT IS BURPING APPLIANCE INDEPENDENTLY. INDEPENDENT IN ROOM.
--- NOTE | 2019-08-11 05:09 | NUR ---
SHIFT SUMMARY POD 5 LOOP SIGMOID COLECTOMY AA0X4, PT HAVING SCANT AMOUNT LIQUID RED DRAINAGE. MODERATE AMOUNT OF FLATUS DURING SHIFT. PT MANAGING BAG ON HER OWN CURRENTLY. PT IND IN ROOM UP AND VOIDING BOWEL SOUNDS HYPERACTIVE ON AUSCULTATION. PT REPORTS NAUSEA AFTER EATING DINNER. PT HAVING SOME ANXIETY R/T HER NEW OSTOMY AND HER CANCER DIAGNOSES
--- NOTE | 2019-08-11 14:51 | NUR ---
DISCHARGED DC'D IV, CATHETER INTACT. PROVIDED OSTOMY SUPPLIES. REVIEWED OSTOMY INSTRUCTIONS. REVIEWED DC INSTRUCTIONS; PT VERBALIZED UNDERSTANDING. PT LEFT UNIT IN WC W/POSSESSIONS, OSTOMY SUPPLIES AND DC INSTRUCTIONS TO MEET RIDE AWAITING OUTSIDE.
== END 2019-08-11 14:50 | disposition home or self-care (01) | DRG 330 ==
LOC: ORSCMMR 06:01 → ORD 09:30 → ORSCMMR 09:30 → SURS 10:23 → ORSCMMR 10:23 → SURS 11:55
PROVIDERS: ADMIT Surgery
PROC: 0D1N074 Bypass Sigmoid Colon to Cutaneous with Autologous Tissue Substitute, Open Approach (ICD-10-PCS; principal; 2019-08-06 07:30)
DX: C19 Malignant neoplasm of rectosigmoid junction (principal); F11.20 Opioid dependence, uncomplicated; F17.210 Nicotine dependence, cigarettes, uncomplicated; J44.9 Chronic obstructive pulmonary disease, unspecified; M54.9 Dorsalgia, unspecified; Z86.19 Personal history of other infectious and parasitic diseases
CPT/HCPCS: 36415; 85025; 94762; J0744; J1100; J1170; J1885; J2250; J2270; J2405; J2704; J3010; J7120; J7512

== ENCOUNTER 2020-10-19 12:38 | Emergency (ER) | payer MEDICARE, OTHER | END 2020-10-19 18:18 | disposition home or self-care (01) | LOC: ER 12:38 | DX: K62.5 Hemorrhage of anus and rectum (principal); C19 Malignant neoplasm of rectosigmoid junction; C78.7 Secondary malignant neoplasm of liver and intrahepatic bile duct; J44.9 Chronic obstructive pulmonary disease, unspecified; Z87.891 Personal history of nicotine dependence; Z88.0 Allergy status to penicillin; Z88.1 Allergy status to other antibiotic agents; Z88.5 Allergy status to narcotic agent ==

== ENCOUNTER → 2020-12-26 | Outpatient (CLI) | payer MEDICARE, OTHER ==
[~2020-12-26] MED LIST changes: +Norco 5-325 Ta1 EACH PO; +ONDA4ODT PO; +Prednisone10 MG PO
[2020-12-26 16:15] LABS: BASOPHILS ABSOLUTE AUTO 0.06 K/mm3 (0.00-0.23); BASOPHILS PERCENT AUTO 0 % (0-2); EOSINOPHILS PERCENT AUTO 1 % (0-6); Hematocrit 35.5 % (33.0-51.0); IMMATURE GRAN PERCENT AUTO 1 % (0-1); LYMPHOCYTES ABSOLUTE AUTO 1.02 K/mm3 (0.84-5.20); LYMPHOCYTES PERCENT AUTO 8 % (21-46); MONOCYTES PERCENT AUTO 10 % (4-13); Mean Corpuscular Volume 81 fL (80-100); NEUTROPHILS ABSOLUTE AUTO 10.92 K/mm3 (1.96-9.15); NEUTROPHILS PERCENT AUTO 81 % (41-73); Platelet Count 201 K/mm3 (150-400); RDW Standard Deviation 60.7 fL (35.1-46.3)
[2020-12-26 16:17] LABS: Mean Platelet Volume 11.5 fL (9.1-12.4)
[2020-12-26 16:34] LABS: Alanine Aminotransfer (ALT/SGP 29 U/L (12-78); Albumin/Globulin Ratio 0.4 (0.8-1.8); Alk Phos 466 U/L (50-136); Anion Gap 5 mmol/L (6-16); Aspartate Aminotrans (AST/SGOT 107 U/L (12-37); Bilirubin, Total 0.8 mg/dL (0.1-1.0); Blood Urea Nitrogen 6 mg/dL (8-24); Bun/Creatinine Ratio 13.7 (12.0-20.0); CO2, Blood 28 mmol/L (21-32); Chloride, Blood 101 mmol/L (98-108); Creatinine, Blood 0.44 mg/dL (0.40-1.00); Globulin, Blood 4.7 g/dL (2.2-4.0); Glomerular Filtration Rate >60 (60-); Glucose, Blood 105 mg/dL (70-99); Potassium, Blood 3.6 mmol/L (3.5-5.5); Sodium, Blood 134 mmol/L (136-145); Total Protein, Blood 6.7 g/dL (6.4-8.2)
== END | disposition home or self-care (01) ==
LOC: LAB SHORT 16:05
PROVIDERS: Internal Medicine Hematology & Oncology
DX: C18.9 Malignant neoplasm of colon, unspecified (principal)
CPT/HCPCS: 80053; 85025

== ENCOUNTER → 2021-01-09 | Outpatient (CLI) | payer MEDICARE, OTHER ==
[2021-01-09 16:36] LABS: BASOPHILS ABSOLUTE AUTO 0.05 K/mm3 (0.00-0.23); BASOPHILS PERCENT AUTO 0 % (0-2); EOSINOPHILS ABSOLUTE AUTO 0.05 K/mm3 (0.00-0.68); EOSINOPHILS PERCENT AUTO 0 % (0-6); Hematocrit 34.9 % (33.0-51.0); IMMATURE GRAN ABSOLUTE AUTO 0.14 K/mm3 (0.00-0.10); IMMATURE GRAN PERCENT AUTO 1 % (0-1); LYMPHOCYTES ABSOLUTE AUTO 0.84 K/mm3 (0.84-5.20); LYMPHOCYTES PERCENT AUTO 7 % (21-46); MONOCYTES ABSOLUTE AUTO 1.22 K/mm3 (0.16-1.47); MONOCYTES PERCENT AUTO 10 % (4-13); Mean Corpuscular HGB 25.1 pg (26.0-34.0); Mean Corpuscular HGB Conc 31.5 g/dL (31.5-36.5); Mean Corpuscular Volume 80 fL (80-100); NEUTROPHILS ABSOLUTE AUTO 10.51 K/mm3 (1.96-9.15); NEUTROPHILS PERCENT AUTO 82 % (41-73); Platelet Count 192 K/mm3 (150-400); RDW Coefficient Variation 21.3 % (11.7-14.2); RDW Standard Deviation 59.6 fL (35.1-46.3); Red Blood Cell Count 4.39 M/mm3 (3.80-5.20); White Blood Cell Count 12.81 K/mm3 (4.00-11.30)
[2021-01-09 16:39] LABS: Mean Platelet Volume 10.6 fL (9.1-12.4)
[2021-01-09 17:00] LABS: Alanine Aminotransfer (ALT/SGP 25 U/L (12-78); Albumin, Blood 1.7 g/dL (3.4-5.0); Albumin/Globulin Ratio 0.3 (0.8-1.8); Alk Phos 403 U/L (50-136); Anion Gap 4 mmol/L (6-16); Aspartate Aminotrans (AST/SGOT 141 U/L (12-37); Bilirubin, Total 1.6 mg/dL (0.1-1.0); Blood Urea Nitrogen 8 mg/dL (8-24); Bun/Creatinine Ratio 22.5 (12.0-20.0); CO2, Blood 29 mmol/L (21-32); Calcium, Blood 8.9 mg/dL (8.5-10.1); Chloride, Blood 100 mmol/L (98-108); Creatinine, Blood 0.36 mg/dL (0.40-1.00); Globulin, Blood 5.2 g/dL (2.2-4.0); Glomerular Filtration Rate >60 (60-); Glucose, Blood 105 mg/dL (70-99); Sodium, Blood 133 mmol/L (136-145); Total Protein, Blood 6.9 g/dL (6.4-8.2)
== END | disposition home or self-care (01) ==
LOC: LAB SHORT 15:48
PROVIDERS: Internal Medicine Hematology & Oncology
DX: C18.9 Malignant neoplasm of colon, unspecified (principal)
CPT/HCPCS: 80053; 82378; 85025

== ENCOUNTER → 2021-01-23 | Outpatient (CLI) | payer MEDICARE, OTHER ==
[2021-01-23 15:01] LABS: BASOPHILS ABSOLUTE AUTO 0.11 K/mm3 (0.00-0.23); BASOPHILS PERCENT AUTO 1 % (0-2); EOSINOPHILS ABSOLUTE AUTO 0.04 K/mm3 (0.00-0.68); EOSINOPHILS PERCENT AUTO 0 % (0-6); Hemoglobin 12.1 g/dL (11.5-16.0); IMMATURE GRAN PERCENT AUTO 1 % (0-1); LYMPHOCYTES ABSOLUTE AUTO 1.04 K/mm3 (0.84-5.20); LYMPHOCYTES PERCENT AUTO 8 % (21-46); MONOCYTES ABSOLUTE AUTO 1.19 K/mm3 (0.16-1.47); MONOCYTES PERCENT AUTO 9 % (4-13); Mean Corpuscular HGB 24.5 pg (26.0-34.0); Mean Corpuscular Volume 79 fL (80-100); NEUTROPHILS ABSOLUTE AUTO 10.95 K/mm3 (1.96-9.15); NEUTROPHILS PERCENT AUTO 82 % (41-73); Platelet Count 217 K/mm3 (150-400); RDW Coefficient Variation 21.4 % (11.7-14.2); RDW Standard Deviation 60.8 fL (35.1-46.3); Red Blood Cell Count 4.93 M/mm3 (3.80-5.20); White Blood Cell Count 13.43 K/mm3 (4.00-11.30)
[2021-01-23 15:39] LABS: Alanine Aminotransfer (ALT/SGP 32 U/L (12-78); Albumin, Blood 1.9 g/dL (3.4-5.0); Albumin/Globulin Ratio 0.3 (0.8-1.8); Alk Phos 416 U/L (50-136); Anion Gap 8 mmol/L (6-16); Aspartate Aminotrans (AST/SGOT 128 U/L (12-37); Bilirubin, Total 1.9 mg/dL (0.1-1.0); Blood Urea Nitrogen 7 mg/dL (8-24); Bun/Creatinine Ratio 18.8 (12.0-20.0); CO2, Blood 27 mmol/L (21-32); Calcium, Blood 9.2 mg/dL (8.5-10.1); Chloride, Blood 98 mmol/L (98-108); Creatinine, Blood 0.37 mg/dL (0.40-1.00); Globulin, Blood 5.7 g/dL (2.2-4.0); Glomerular Filtration Rate >60 (60-); Glucose, Blood 110 mg/dL (70-99); Potassium, Blood 3.8 mmol/L (3.5-5.5); Sodium, Blood 133 mmol/L (136-145); Total Protein, Blood 7.6 g/dL (6.4-8.2)
== END | disposition home or self-care (01) ==
LOC: LAB SHORT 14:00 → LAB 14:00
PROVIDERS: Internal Medicine Hematology & Oncology
DX: C18.9 Malignant neoplasm of colon, unspecified (principal)
CPT/HCPCS: 80053; 82378; 85025